=== PATIENT | male | born 1960 | race Hispanic/Latino ===

== ENCOUNTER 2024-09-28 23:00 | Observation (INO) | payer OTHER ==
[~2024-09-28] VITALS: Ht 172.7 cm; Wt 88.9 kg
[~2024-09-28 23:00] MED LIST: AMLODIPINE BENAZ PO; LOSARTAN POTASS50 MG PO; METFORMIN HCL850 MG PO; OMEGA 3 1,0001 EACH PO
[2024-09-28 23:48] VITALS: TEMP 98.2
[2024-09-29] VITALS (9 sets, daily range): BP systolic 113–137; BP diastolic 63–76; PULSE 64–79; RESP 14–20; TEMP 97.3–98.6; O2SAT 98–100
[2024-09-29 00:15] LABS: BASOPHILS % 0.6 % (0.0-1.0); EOSINOPHILS # (AUTO) 0.3 (0.0-0.4); EOSINOPHILS % 4.2 % (0.0-6.0); HEMATOCRIT 30.1 % (38.2-49.6); LYMPHOCYTES # (AUTO) 1.9 (1.0-3.2); LYMPHOCYTES % 29.6 % (18.0-39.1); MEAN CORPUSCULAR HEMOGLOBIN 28.7 pg (28-32); MEAN CORPUSCULAR HGB CONC 33.2 g/dL (31-35); MEAN CORPUSCULAR VOLUME 86.5 fL (81-99); MONOCYTES # (AUTO) 0.4 (0.2-0.8); MONOCYTES % 5.8 % (4.4-11.3); NEUTROPHILS # (AUTO) 3.7 (2.1-6.9); NEUTROPHILS % 59.5 % (38.7-80.0); PLATELET COUNT 178 x10e3/uL (140-360); RED BLOOD COUNT 3.48 x10e6/uL (4.3-5.7); RED CELL DISTRIBUTION WIDTH 13.4 % (11.7-14.4); WHITE BLOOD COUNT 6.24 x10e3/uL (4.8-10.8)
[2024-09-29 00:29] LABS: ALBUMIN 3.8 g/dL (3.5-5.0); ALBUMIN/GLOBULIN RATIO 1.3 (0.8-2.0); ANION GAP 16.5 mmol/L (8-16); BILIRUBIN,TOTAL 0.3 mg/dL (0.2-1.2); CALCIUM 8.9 mg/dL (8.4-10.2); CREATININE, SERUM 1.36 mg/dL (0.72-1.25); POTASSIUM 3.5 mmol/L (3.5-5.1); TOTAL PROTEIN 6.7 g/dL (6.5-8.1)
[2024-09-29 00:53] LABS: INR 1.04; PARTIAL THROMBOPLASTIN TIME 26.9 seconds (23.8-35.5); PROTHROMBIN TIME 14.2 seconds (11.9-14.5)
[2024-09-29] MEDS: SODIUM CHLORIDE 0.9% 1000ML 1,000 ML IV ONE (00:59)
[2024-09-29] MEDS ORDERED: IOPAMIDOL 370 MG/ML 100 ML INFUS..BTL INJ ONE (02:23)
[2024-09-29] MEDS ORDERED: SODIUM CHLORIDE 0.9% 100 ML ONE (02:23)
[2024-09-29] MEDS ORDERED: CRESTOR40 MG PO (03:34)
[2024-09-29] MEDS ORDERED: HYDROCHLOROTHIA25 MG PO (03:34)
[2024-09-29 07:31] LABS: HEMATOCRIT 26.2 % (38.2-49.6); HEMOGLOBIN 8.8 g/dL (14.0-18.0)
[2024-09-29] MEDS ORDERED: ACETAMINOPHEN 325 MG TAB PO PRN (09:45)
[2024-09-29] MEDS ORDERED: DEXTROSE 50% SYRINGE 50 ML IV PRN (09:45)
[2024-09-29] MEDS ORDERED: ONDANSETRON HCL INJ 2MG/ML 2ML 2 MG/ML VIAL IV PRN (09:45)
[2024-09-29] MEDS: AMLODIPINE BESYLATE 5 MG TAB PO SCH (10:05)
[2024-09-29] MEDS: LORATADINE 10 MG TAB PO SCH (10:06)
[2024-09-29] MEDS: LOSARTAN POTASSIUM 25 MG TAB PO SCH (10:06)
[2024-09-29] MEDS: IRON SUCROSE 100 MG in SODIUM CHLORIDE 0.9% 100 ML IV SCH (10:07)
[2024-09-29] MEDS: INSULIN LISPRO 100 UNIT/1 ML 3ML VIAL SQ SCH (11:30)
[2024-09-29] MEDS: METFORMIN HCL 850 MG TAB PO SCH (17:00)
[2024-09-29 18:15] LABS: HEMATOCRIT 26.1 % (38.2-49.6); HEMOGLOBIN 8.6 g/dL (14.0-18.0)
[2024-09-29] MEDS: CRESTOR 10MG PO SCH (21:20)
[2024-09-30] VITALS: BP 97/51; PULSE 77; RESP 18; TEMP 98.1; O2SAT 100
[2024-09-30 04:00] VITALS: BP 98/49; PULSE 60; RESP 18; TEMP 97.7; O2SAT 98
[2024-09-30 05:05] LABS: HEMOGLOBIN 8.1 g/dL (14.0-18.0)
[2024-09-30 07:52] VITALS: BP 117/59; PULSE 60; RESP 19; TEMP 97.9; O2SAT 98
[2024-09-30 08:57] VITALS: BP 117/59
== END 2024-09-30 10:00 | disposition home or self-care (01) ==
LOC: ER 09-29 00:07 → ERHOLD 09-29 02:08 → MED/SURG2 09-29 02:48
PROVIDERS: ADMIT Internal Medicine; ATTEND Internal Medicine
DX: K91.840 Postprocedural hemorrhage of a digestive system organ or structure following a digestive system procedure (principal); D62 Acute posthemorrhagic anemia; K62.5 Hemorrhage of anus and rectum; I10 Essential (primary) hypertension; E11.9 Type 2 diabetes mellitus without complications; E78.5 Hyperlipidemia, unspecified; Z79.84 Long term (current) use of oral hypoglycemic drugs; Y83.8 Other surgical procedures as the cause of abnormal reaction of the patient, or of later complication, without mention of misadventure at the time of the procedure
CPT/HCPCS: 36415 ×2; 70450; 74174; 80053; 82948 ×2; 84484; 85014 ×2; 85018 ×2; 85025; 85610; 85730; 86850; 86900; 86920; 93005; 94799; 99284; G0378 ×2; J1756 ×2; J2470 ×2; J7030; J7050 ×2; Q9967